=== PATIENT | female | born 1985 | race Caucasian/White ===

== ENCOUNTER → 2016-10-24 | Outpatient (CLI) | payer OTHER ==
--- NOTE | 2016-10-24 14:48 | CT ---
EXAMINATION TYPE: CT ChestAbdPelvis w con DATE OF EXAM: 10/24/2016 1:51 PM COMPARISON: CT cap April 20, 2016. HISTORY: Follow up on lymphoma, primary site right neck per patient. CT DLP: 1355 mGycm. Automated Exposure Control for Dose Reduction was Utilized. CONTRAST: CT scan of the thorax, abdomen and pelvis is performed with oral and with IV Contrast, patient inject ed with 100 ml mL of Omnipaque 300. FINDINGS: LUNGS: Dependent atelectatic change in bilateral lower lobes is present. There is no pleural effusion or pneumothorax seen. No suspicious parenchymal nodule or mass is present. MEDIASTINUM: There are no greater than 1 cm hilar or mediastinal lymph nodes. No cardiomegaly or pe ricardial effusion is seen. OTHER: No additional significant abnormality is seen. LIVER/GB: No significant abnormality is appreciated. PANCREAS: No significant abnormality is seen. SPLEEN: No significant abnormality is seen. ADRENALS: No significant abnormality is seen. KIDNEYS: No significant abnormality is seen. BOWEL: No significant abnormality is seen. GENITAL ORGANS: Uterus is retroverted in shape and normal in size. LYMPH NODES: No greater than 1cm abdominal or pelvic lymph nodes are appreciated. OSSEOUS STRUCTURES: No significant abnormality is seen. OTHER: There is 9 x 5 mm nodule in the lateral aspect left breast on axial image 25 above the nipple stable from prior exam or less prominent in size. Need to further investigate by targeted ultrasound should be based on clinical correlation. IMPRESSION: No worrisome new mass or adenopathy is seen to suggest lymphoma recurrence.
== END | disposition home or self-care (01) ==
LOC: RADCTMAIN 13:09
PROVIDERS: ATTEND Internal Medicine Hematology & Oncology
DX: Z85.72 Personal history of non-Hodgkin lymphomas (principal)
CPT/HCPCS: 71260; 74177; Q9967

== ENCOUNTER → 2016-10-30 | Outpatient (CLI) | payer OTHER ==
--- NOTE | 2016-10-30 09:24 | USB ---
Reason for exam: clinical finding. Indicated problem(s): lump or thickening in the left breast. Physical Findings: Nurse Summary: area found of CT scan (nurse janie). US Breast LT Left breast ultrasound includes all four quadrants, the retroareolar region and axilla. Finding demonstrate a 0.5 x 0.4 x 0.3cm oval, cystic lesion at 12 o'clock, a 0.4 x 0.7 x 0.2cm oval, cystic lesion at 1 o'clock and a 1.1 x 0.8 x 0.5cm irregular, solid, hypoechoic lesion at 11 o'clock for which a biopsy is recommended. These results were verbally communicated with the patient and result sheet given to the patient on . ASSESSMENT: Suspicious, BI-RAD 4 RECOMMENDATION: Ultrasound core biopsy of the left breast. Called with mammographic findings and has scheduled an appointment for the patient for 11/07/16 at 9:[address] Hammond. PRELIMINARY REPORT CALLED AND FAXED TO DR. HAMMOND ON 10/30/16 AT 300/TMP.
== END | disposition home or self-care (01) ==
LOC: RADUSWWP 08:24
PROVIDERS: ATTEND Internal Medicine Hematology & Oncology
DX: R92.8 Other abnormal and inconclusive findings on diagnostic imaging of breast (principal)

== ENCOUNTER 2016-11-09 13:09 | Emergency (ER) | payer OTHER ==
[2016-11-09 13:18] VITALS: BP 102/68; PULSE 70; RESP 16; TEMP 97.4
--- NOTE | 2016-11-09 13:44 | ED ---
General Adult HPI - General Chief complaint: Head Injury Stated complaint: Fall/Head injury Time Seen by Provider: 11/09/16 13:25 Source: patient, family, RN notes reviewed Mode of arrival: wheelchair Limitations: no limitations - History of Present Illness Initial comments: This is a pleasant 30-year-old female who presents emergency department from the [facility]. Patient had a mammogram after having a biopsy done of her left breast. Patient states that when she had a procedure done she felt a bit woozy and lightheaded when she was looking down at the ear procedure she states that she felt lightheaded like she is going to pass out. Apparently the patient didn't lose consciousness for several seconds. Patient did bump her head as well. However patient was able to regain postural tone on her own. She has no complaints at this time. She denies headache. She denies vision or hearing disturbance no slurred speech. No difficulty swallowing. No paresthesias. No chest pain or shortness of breath patient states that she has had previous problems in the past when she has had blood draws. Patient had no preceding symptoms. No chest pain or palpitations no shortness of breath. Patient denies any significant health history. Patient takes no prescription medications. Patient is a nonsmoker. Patient does not partake in illicit drugs or alcohol family history is positive for cardiac disease in a maternal grandfather onset in the 60s - Related Data Allergies Allergy/AdvReac Type Severity Reaction Status Date / Time No Known Allergies Allergy Verified 11/09/16 13:14 Review of Systems ROS Statement: Those systems with pertinent positive or pertinent negative responses have been documented in the HPI. ROS Other: All systems not noted in ROS Statement are negative. Past Medical History Past Medical History: No Reported History History of Any Multi-Drug Resistant Organisms: None Reported Past Surgical History: Cholecystectomy Additional Past Surgical History / Comment(s): BREAST BIOPSY Past Psychological History: No Psychological Hx Reported Smoking Status: Never smoker Past Alcohol Use History: None Reported Past Drug Use History: None Reported Additional History: Maternal grandfathercardiac disease General Exam - General Exam Comments Initial Comments: This is a well-developed, well-nourished 30-year-old female who presents emergency department no distress Limitations: no limitations General appearance: alert, in no apparent distress Head exam: Present: atraumatic, normocephalic, normal inspection Eye exam: Present: normal appearance, PERRL, EOMI. Absent: scleral icterus, conjunctival injection, periorbital swelling ENT exam: Present: normal exam, normal oropharynx, mucous membranes moist, TM's normal bilaterally, normal external ear exam Neck exam: Present: normal inspection, full ROM. Absent: tenderness, meningismus, lymphadenopathy Respiratory exam: Present: normal lung sounds bilaterally. Absent: respiratory distress, wheezes, rales, rhonchi, stridor Cardiovascular Exam: Present: regular rate, normal rhythm, normal heart sounds. Absent: systolic murmur, diastolic murmur, rubs, gallop, clicks GI/Abdominal exam: Present: soft, normal bowel sounds. Absent: distended, tenderness, guarding, rebound, rigid Extremities exam: Present: normal inspection, full ROM, normal capillary refill. Absent: tenderness, pedal edema, joint swelling, calf tenderness Back exam: Present: normal inspection Neurological exam: Present: alert, oriented X3, CN II-XII intact, normal gait Psychiatric exam: Present: normal affect, normal mood Skin exam: Present: warm, dry, intact, normal color. Absent: rash Course Vital Signs 11/09/16 13:14 Temperature 97.4 F L Pulse Rate 70 Respiratory 16 Rate Blood Pressure 102/68 O2 Sat by Pulse 100 Oximetry EKG Findings - EKG Results: EKG: interpreted by DIEGO CALLAHAN, sinus rhythm, normal axis, normal QRS, normal ST/ T, no acute changes Medical Decision Making - Medical Decision Making This patient in all likelihood had a vasovagal episode. Patient has no other neurologic findings. There is no seizure activity. There are no preceding symptoms such as chest pain or palpitations. Patient did have a premonition that she was going to pass out. We will have the patient hydrated adequately. Patient can return to the ER at anytime if any symptoms recur or worsen. Patient should follow-up with her primary care physician. Patient should call today for an appointment within the next few days. Patient may need further testing such as a Holter monitor. We will have the patient refrain from any strenuous activity until follow-up with the primary care physician. Disposition Clinical Impression: Syncope, vasovagal Disposition: HOME SELF-CARE Condition: Good Additional Instructions: Follow-up with her primary care physician for reevaluation. Return to the ER at anytime if any symptoms worsen or any problems arise. No strenuous activity until follow-up with the primary care physician Referrals: Leticia Leonardo DO [Primary Care Provider] - 1-2 days
== END 2016-11-09 14:18 | disposition home or self-care (01) ==
LOC: EC 13:09
DX: R55 Syncope and collapse (principal)
CPT/HCPCS: 93005; 99283

== ENCOUNTER → 2016-11-09 | Day surgery (SDC) | payer OTHER ==
[~2016-11-09] MED LIST: ALPRAZolam 0.25 MG TAB ONE; BACITRACIN OINT 1 EACH PACKET TOPICAL ONE; LIDOCAINE 1% INJ 10MG/ML (20 ML MDV) ONE; SODIUM BICARB 4% 5 ML VIAL (0.48 MEQ/ML) ONE
--- NOTE | 2016-11-09 13:00 | USB ---
EXAMINATION TYPE: US biopsy breast VAD LT, MG diagnostic mammo LT wo CAD DATE OF EXAM: 11/09/2016 12:39 PM CLINICAL HISTORY: Left Breast Mass N63. TECHNIQUE: Ultrasound guided core biopsy of left 11:00 breast. COMPARISON: NONE FINDINGS: The procedure of ultrasound guided core biopsy was explained to the patient. Benefits, alternatives, and risks were discussed. An informed consent was then obtained. The patient was placed in supine positioning for imaging and for the procedure. The overlying skin was prepped and draped in usual sterile fashion. Lidocaine buffered with bicarbonate was used as anesthetic into the skin and subcutaneous tissue up to area of concern in the left breast. A ruby was made with surgical scalpel. Under ultrasound guidance, a 12-gauge vacuum assisted biopsy gun device was used to obtain 4 core samples. Following this, a biopsy clip was left in lesion. Postprocedural mammogram demonstrates appropriate deployment. The patient tolerated the procedure well without any immediate complication. The patient was kept in the radiology department for short stay after the procedure and then discharged home in stable condition. IMPRESSION: Successful, uncomplicated ultrasound guided core biopsy of area of concern in the left 11:00 breast, full pathology results to follow. Pathology Results: Benign BREAST, LEFT, ULTRASOUND GUIDED CORE BIOPSY: FIBROADENOMA. FIBROCYSTIC CHANGE ( STROMAL FIBROSIS AND DUCT HYPERPLASIA). Recommendation Follow up ultrasound of the left breast in 6 months. LUNA
== END ==
LOC: RADUSWWP 10:58
PROVIDERS: ATTEND Internal Medicine Hematology & Oncology
DX: D24.2 Benign neoplasm of left breast (principal); N60.12 Diffuse cystic mastopathy of left breast; N60.92 Unspecified benign mammary dysplasia of left breast
CPT/HCPCS: 88305; 19083; G0206; A4648; J2001

== ENCOUNTER → 2017-04-25 | Outpatient (CLI) | payer OTHER ==
--- NOTE | 2017-04-25 14:22 | CT ---
EXAMINATION TYPE: CT ChestAbdPelvis w con DATE OF EXAM: 04/25/2017 COMPARISON: October 24, 2016 HISTORY: Patient has no complaints at time of treatment. Follow up study for history of known lymph shannan (neck). CT DLP: 1804 mGycm CONTRAST: CT scan of the chest, abdomen and pelvis is performed without Oral Contrast and with IV Contrast, pat ient injected with 100 mL of Omnipaque 300. CT Chest: LUNGS: The lungs are clear and free of infiltrate or atelectasis. No pulmonary nodule or mass is det ected. No pleural effusion or CT evidence of interstitial lung disease. MEDIASTINUM: Thoracic aorta is of normal caliber. The heart is not enlarged. No evidence for media stinal mass or adenopathy. Mild interval prominence of the thymus may reflect thymic rebound. HILAR STRUCTURES: No evidence for mass. No hilar adenopathy is appreciated. OTHER: No significant abnormality. CONTRAST CT ABDOMEN AND PELVIS FINDINGS: LIVER/GB: Cholecystectomy clips are noted. No space occupying hepatic lesion. Biliary tree is of norm al caliber. PANCREAS: No inflammation. No distinct mass. SPLEEN: No splenic enlargement. No lesion seen. ADRENALS: No nodule. No thickening. KIDNEYS/BLADDER: No hydronephrosis. No nephrolithiasis. No disctinct renal mass. BOWEL: Normal appendix. Normal bowel caliber. No inflammation. GENITAL ORGANS: No gross abnormality. LYMPH NODES: No greater than 1cm abdominal or pelvic lymph nodes are appreciated. AORTA: No significant abnormality. OSSEOUS STRUCTURES: No significant abnormality is seen. OTHER: No significant additional abnormality is seen. IMPRESSION: 1. No adenopathy within the chest abdomen or pelvis. 2. Suspect thymic rebound changes.
== END | disposition home or self-care (01) ==
LOC: RADCTMAIN 13:07
PROVIDERS: ATTEND Internal Medicine Hematology & Oncology
DX: C85.98 Non-Hodgkin lymphoma, unspecified, lymph nodes of multiple sites (principal)
CPT/HCPCS: 71260; 74177; Q9967

== ENCOUNTER → 2017-05-01 | Outpatient (CLI) | payer OTHER ==
--- NOTE | 2017-05-01 09:24 | USB ---
Reason for exam: follow-up at short interval from prior study. History: Patient has history of other cancer at age 27. Family history of breast cancer in mother at age 35. Benign US biopsy breast VAD LT of the left breast, November 09, 2016. Physical Findings: Nurse did not find any significant physical abnormalities on exam. US Breast LT Left breast ultrasound includes all four quadrants, the retroareolar region and axilla. Finding demonstrates a 6 x 3 x 6mm oval, solid, hypoechoic lesion at 11 o'clock, decreased in size. These results were verbally communicated with the patient and result sheet given to the patient on 05/01/17. ASSESSMENT: Probably benign, BI-RAD 3 RECOMMENDATION: Ultrasound of the left breast in 6 months.
== END | disposition home or self-care (01) ==
LOC: RADUSWWP 08:20
PROVIDERS: ATTEND Family Medicine
DX: N60.22 Fibroadenosis of left breast (principal)

== ENCOUNTER → 2017-11-02 | Outpatient (CLI) | payer OTHER ==
--- NOTE | 2017-11-02 10:27 | CT ---
EXAMINATION TYPE: CT ChestAbdPelvis w con DATE OF EXAM: 11/02/2017 COMPARISON: 04/25/2017 HISTORY: 31-year-old female follow-up lymphoma, last chemotherapy in 2012. TECHNIQUE: Contiguous axial scanning of the chest, abdomen, and pelvis performed with IV Contrast, pa tient injected with 100 mL of Isovue 300. Delayed images through the kidneys were obtained. Coronal/s agittal reconstructions performed. CT DLP: 1590 mGycm Automated exposure control for dose reduction was used. FINDINGS: Chest: Heart is normal size without pericardial effusion. Aorta normal caliber with conventional arch vessel branching anatomy. Residual thymic tissue is redemonstrated along the anterior mediastinum. No thoracic lymphadenopathy. Stable nodule with punctate calcification in the central left breast as compared to 2017. Evaluation of the lung shows no consolidation or pleural effusion. ABDOMEN: No focal liver lesion or biliary ductal dilatation. Portal venous system is patent. Cholecystectomy clips. Adrenal glands, kidneys, spleen, and pancreas appear within normal limits. No dilated small bowel, free fluid, or free air. No mesenteric or retroperitoneal lymphadenopathy. Scattered mild stool burden. Oral contrast progressed to the proximal transverse colon. No pericoloni c inflammatory change. Pelvis: Bladder is urine distended. A tampon is present. Uterus is retroverted. There is a 1.2 cm somewhat hi gh density nodule within the left ovary. Right ovary is visualized. Small amount of pelvic free fluid . No abnormal fluid collection in the pelvis or pelvic lymphadenopathy. Bones: No osseous destructive process. Mild endplate spondylosis mid to lower thoracic spine. IMPRESSION: 1. NO SUSPICIOUS LYMPHADENOPATHY WITHIN THE CHEST, ABDOMEN, OR PELVIS TO SUGGEST NEOPLASTIC RECURRENC E. 2. A 1.2 CM SOMEWHAT HIGH DENSITY NODULE IN THE LEFT OVARY COULD REPRESENT A HEMORRHAGIC CYST. PELVIC ULTRASOUND CAN FURTHER EVALUATE. SMALL AMOUNT OF PELVIC FREE FLUID LIKELY PHYSIOLOGIC. 3. STABLE THYMIC TISSUE IN THE ANTERIOR MEDIASTINUM.
== END | disposition home or self-care (01) ==
LOC: RADCTMAIN 07:28
PROVIDERS: ATTEND Internal Medicine Hematology & Oncology
DX: C85.98 Non-Hodgkin lymphoma, unspecified, lymph nodes of multiple sites (principal)
CPT/HCPCS: 71260; 74177; Q9967

== ENCOUNTER → 2018-05-03 | Outpatient (CLI) | payer OTHER ==
--- NOTE | 2018-05-03 10:45 | CT ---
EXAMINATION TYPE: CT ChestAbdPelvis w con DATE OF EXAM: 05/03/2018 COMPARISON: 11/02/2017 HISTORY: Follow up for lymphoma. CT DLP: 1818 mGycm. Automated Exposure Control for Dose Reduction was Utilized. CONTRAST: CT scan of the thorax, abdomen and pelvis is performed with IV Contrast, patient injected with 100 mL of Isovue 300. FINDINGS: LUNGS: The lungs are grossly clear, there is no concerning parenchymal mass or nodule identified. Dep endent subsegmental atelectasis is seen bilaterally. There is no pleural effusion or pneumothorax see n. The tracheobronchial tree is patent. MEDIASTINUM: There are no greater than 1 cm hilar or mediastinal lymph nodes. No pericardial effusi on is seen. OTHER: Small nonenlarged left supraclavicular lymph node measures 5 mm in short axis on series 3 imag e 4. Residual density within the anterior superior mediastinum and is triangular-shaped and similar t o the prior likely related to residual thymus rather than adenopathy. Dystrophic calcification and as sociated small mass of the upper outer quadrant of the left breast are also stable and appear benign, possibly a fibroadenoma. LIVER/GB: No significant abnormality is appreciated. Gallbladder surgically absent. No intrahepatic b iliary ductal dilatation. PANCREAS: No significant abnormality is seen. No ductal dilatation. SPLEEN: The spleen is nonenlarged measuring 10.4 cm in craniocaudal dimension. ADRENALS: No significant abnormality is seen. No nodularity or thickening. KIDNEYS: No significant abnormality is seen. Kidneys enhance symmetrically without hydronephrosis. BOWEL: No significant abnormality is seen. No dilated large or small bowel. GENITAL ORGANS: Uterus is retroverted. Endometrium measures approximately 1.2 cm, within normal limit s for a premenopausal female. Cystic lesion in the cervix likely relates to a nabothian cyst. Left ov sarabjit appears overall similar to the prior. Scant amount of free fluid is seen within the pelvis. LYMPH NODES: No greater than 1cm abdominal or pelvic lymph nodes are appreciated. OSSEOUS STRUCTURES: No significant abnormality is seen. OTHER: No significant additional abnormality is seen. IMPRESSION: 1. No evidence of lymphoma recurrence. No new adenopathy within the chest, abdomen, or pelvis. 2. Stable thymic tissue in the superior mediastinum that could relate to residual thymic tissue or th ymic hyperplasia.
== END | disposition home or self-care (01) ==
LOC: RADCTMAIN 08:07
PROVIDERS: ATTEND Internal Medicine Hematology & Oncology
DX: C85.98 Non-Hodgkin lymphoma, unspecified, lymph nodes of multiple sites (principal)
CPT/HCPCS: 71260; 74177; 36415; Q9967

== ENCOUNTER → 2019-05-26 | Outpatient (CLI) | payer OTHER ==
--- NOTE | 2019-05-26 11:25 | MM ---
Reason for exam: clinical finding. Last mammogram was performed 2 years and 6 months ago. History: Patient has history of other cancer at age 27 and is nulliparous. Family history of breast cancer in mother at age 35. Benign US biopsy breast VAD LT of the left breast, November 09, 2016. Indicated problem(s): lump or thickening in the left breast. Physical Findings: Nurse did not find any significant physical abnormalities on exam. MG Diagnostic Mammo w CAD KEILA Bilateral CC and MLO view(s) were taken. XCCL view(s) were taken of the left breast. Prior study comparison: November 09, 2016, left breast MG diagnostic mammo LT wo CAD. There are scattered fibroglandular densities. Previous mammotome biopsy in the left breast. There is chronic nodularity in the left breast. No significant new findings when compared with previous films. These results were verbally communicated with the patient and result sheet given to the patient on 05/26/19. ASSESSMENT: Benign, BI-RAD 2 RECOMMENDATION: Routine screening mammogram of both breasts in 1 year.
--- NOTE | 2019-05-26 11:26 | USB ---
Reason for exam: clinical finding. History: Patient has history of other cancer at age 27 and is nulliparous. Family history of breast cancer in mother at age 35. Benign US biopsy breast VAD LT of the left breast, November 09, 2016. US Breast Limited LT Left limited breast ultrasound including focal area of concern, retroareolar and axilla demonstrates a 0.9 x 0.6 x 0.6cm solid, hypoechoic lesion at 11 o'clock, clip seen. These results were verbally communicated with the patient and result sheet given to the patient on 05/26/19. ASSESSMENT: Probably benign, BI-RAD 3 RECOMMENDATION: Ultrasound of the left breast in 6 months.
== END ==
LOC: RADMAMWWP 07:38
PROVIDERS: ATTEND Family Medicine
DX: N63.21 Unspecified lump in the left breast, upper outer quadrant (principal)
CPT/HCPCS: 77066

== ENCOUNTER → 2019-12-10 | Outpatient (CLI) | payer OTHER ==
--- NOTE | 2019-12-12 07:34 | USB ---
Reason for exam: follow-up at short interval from prior study. History: Patient has history of other cancer at age 27 and is nulliparous. Family history of breast cancer in mother at age 35. Benign US biopsy breast VAD LT of the left breast, November 09, 2016. Physical Findings: Nurse did not find any significant physical abnormalities on exam. US Breast Limited LT Left limited breast ultrasound including focal area of concern, retroareolar and axilla demonstrates a 0.6 x 0.7 x 0.8cm solid, hypoechoic lesion at 11 o'clock. These results were verbally communicated with the patient and result sheet given to the patient on 12/10/19. ASSESSMENT: Benign, BI-RAD 2 RECOMMENDATION: Follow-up diagnostic mammogram of both breasts in 6 months. Ultrasound of the left breast in 6 months. Back on schedule.
== END | disposition home or self-care (01) ==
LOC: RADUSWWP 08:24
PROVIDERS: ATTEND Family Medicine
DX: N60.22 Fibroadenosis of left breast (principal); R92.8 Other abnormal and inconclusive findings on diagnostic imaging of breast

== ENCOUNTER → 2020-08-23 | Outpatient (CLI) | payer OTHER ==
--- NOTE | 2020-08-23 10:31 | US ---
EXAMINATION TYPE: US pelvis complete transvag DATE OF EXAM: 08/23/2020 COMPARISON: NONE CLINICAL HISTORY: 34-year-old female pelvic pain R10.2. TECHNIQUE: Transvaginal (TV) and Transabdominal (TA) . Transabdominal sonographic images of the pel vis were acquired. Transvaginal sonographic images were medically necessary to better assess the tone di. FINDINGS: EXAM MEASUREMENTS: Uterus: 9.2 x 3.6 x 5.1 cm Endometrial Stripe: .5 cm Right Ovary: 2.4 x 1.6 x 1.3 cm Left Ovary: 3.3 x 2.3 x 2.3 cm 1. Uterus: Retroverted and otherwise wnl 2. Endometrium: wnl 3. Right Ovary: Normal follicular change. 4. Left Ovary: Complex, heterogeneous hypoechoic area measuring 2.0 x 1.7 x 2.5 cm there are no inte rnal vascularity. 5. Bilateral Adnexa: wnl 6. Posterior cul-de-sac: wnl IMPRESSION: 1. A 2.5 cm heterogeneous hypoechoic lesion in the left ovary shows no associated vascularity. A hemo rrhagic cyst is suspected. Follow-up ultrasound in 6-8 weeks to ensure involution. 2. Retroverted uterus. Endometrial stripe measuring 5 mm. Normal follicular change in the right ovary .
== END | disposition home or self-care (01) ==
LOC: RADUSWWP 08:11
PROVIDERS: ATTEND Family Medicine
DX: N85.4 Malposition of uterus (principal); R10.2 Pelvic and perineal pain; D24.2 Benign neoplasm of left breast
CPT/HCPCS: 76830; 76856

== ENCOUNTER → 2020-09-24 | Outpatient (CLI) | payer OTHER ==
--- NOTE | 2020-09-27 08:43 | MM ---
Reason for exam: additional evaluation requested from prior study. Last mammogram was performed 1 year and 4 months ago. History: Patient has history of other cancer at age 27 and is nulliparous. Family history of breast cancer in mother at age 35. Benign US biopsy breast VAD LT of the left breast, November 09, 2016. Taking hormonal contraceptives. Physical Findings: Nurse did not find any significant physical abnormalities on exam. MG Diagnostic Mammo w CAD KEILA Bilateral CC and MLO view(s) were taken. Prior study comparison: May 26, 2019, bilateral MG diagnostic mammo w CAD KEILA. November 09, 2016, left breast MG diagnostic mammo LT wo CAD. No significant new findings when compared with previous films. These results were verbally communicated with the patient and result sheet given to the patient on 09/24/20. ASSESSMENT: Benign, BI-RAD 2 RECOMMENDATION: Routine screening mammogram of both breasts in 1 year.
--- NOTE | 2020-09-27 08:47 | USB ---
Reason for exam: additional evaluation requested from prior study. History: Patient has history of other cancer at age 27 and is nulliparous. Family history of breast cancer in mother at age 35. Benign US biopsy breast VAD LT of the left breast, November 09, 2016. Taking hormonal contraceptives. US Breast Limited LT Left limited breast ultrasound including focal area of concern, retroareolar and axilla demonstrates a 0.8 x 0.5 x 0.5cm solid, hypoechoic lesion at 11 o'clock, clip seen from previous biopsy. These results were verbally communicated with the patient and result sheet given to the patient on 09/24/20. ASSESSMENT: Benign, BI-RAD 2 RECOMMENDATION: Routine screening mammogram of both breasts in 1 year.
== END | disposition home or self-care (01) ==
LOC: RADMAMWWP 14:10
PROVIDERS: ATTEND Family Medicine
DX: R92.8 Other abnormal and inconclusive findings on diagnostic imaging of breast (principal); D24.2 Benign neoplasm of left breast
CPT/HCPCS: 77066

== ENCOUNTER → 2020-10-28 | Outpatient (CLI) | payer OTHER ==
--- NOTE | 2020-10-28 11:56 | US ---
EXAMINATION TYPE: US pelvis complete transvag DATE OF EXAM: 10/28/2020 COMPARISON: NONE CLINICAL HISTORY: N83.202 Unspecified ovarian cyst, left side.... Pain left side. TECHNIQUE: Transvaginal (TV) and Transabdominal (TA) . EXAM MEASUREMENTS: Uterus: 8.2 x 4.5 x 5.5 cm Endometrial Stripe: 1.2 cm Right Ovary: 2.9 x 2.0 x 2.5 cm Left Ovary: 3.1 x 2.5 x 2.4 cm 1. Uterus: Retroverted wnl 2. Endometrium: wnl 3. Right Ovary: Follicles seen. 4. Left Ovary: Hypoechoic area seen 1.6 x 2.2 x 1.9 cm. This may be a hemorrhagic cyst with some in ternal echoes. 5. Bilateral Adnexa: wnl 6. Posterior cul-de-sac: wnl Urinary bladder is sonolucent. Posterior wall is unremarkable. IMPRESSION: 1. Left ovarian cyst follow-up following the next normal menstrual period is recommended
== END | disposition home or self-care (01) ==
LOC: RADUSWWP 10:05
PROVIDERS: ATTEND Family Medicine
DX: N83.202 Unspecified ovarian cyst, left side (principal)
CPT/HCPCS: 76830; 76856